=== PATIENT | female | born 1965 | race African-American/Black ===

== ENCOUNTER 2019-04-10 22:06 | Emergency (ER) | payer OTHER, SELFPAY ==
--- NOTE | 2019-04-10 22:44 | RAD ---
Exam: XR Foot Rt 3 View STANDARD HISTORY: Right toe swelling. COMPARISON: None FINDINGS: There are postsurgical changes involving the proximal right first metatarsal with evidence of postsur gical changes involving the distal right first metatarsal. There is a metallic staple overlying the proximal aspect of the proximal phalanx right great toe. There is a lucency seen involving the distal aspect of the proximal phalanx great toe, and the cortex along the distal margin is not visualized. While these findings could be postsurgical in origin, infectious process cannot be entire ly excluded. There is subcutaneous soft tissue swelling about the great toe. No acute fracture or dislocation is identified. No other osseous abnormality. IMPRESSION: 1. Lucency in the distal aspect proximal phalanx right great toe, and the cortex along the distal mar gin of the distal phalanx is not visualized. While findings could be related to postsurgical changes, osteomyelitis cannot be excluded. Correlation with prior radiographs of the right foot are r ecommended. 2. Postsurgical changes of the right first metatarsal and proximal phalanx. 3. Subcutaneous soft tissue swelling about the right great toe.
[2019-04-10] MEDS ORDERED: HYDROcodone/Acetaminophen 5/325 mg Tablet ONE (23:41)
[2019-04-10 23:58] LABS: #Basophils 0.1 thou/uL (0.0-0.2); #Eosinphils 0.3 thou/uL (0.0-0.7); #Lymphocytes 2.9 thou/uL (1.20-3.40); #Monocytes 0.8 thou/uL (0.11-0.59); #Neutrophils 5.7 thou/uL (1.40-6.50); %Basophils 1.4 % (0.0-1.0); %Eosinophils 3.6 % (0.0-10.0); %Lymphocytes 29.2 % (21.0-51.0); %Monocytes 7.8 % (0.0-10.0); %Neutrophils 58.1 % (42.0-75.0); Mean Corpuscular HGB CONC 34.4 g/dL (32.0-36.0); Mean Corpuscular Hemoglobin 30.7 pg (27.0-31.0); Mean Corpuscular Volume 89.2 fL (78.0-98.0); Mean Platelet Volume 6.6 fL (7.4-10.4); Platelet Count 340 thou/uL (130-400); RBC Distribution Width 12.1 % (11.5-14.5); Red Blood Cell (RBC) Count 4.57 mill/uL (4.20-5.40); White Blood Cell (WBC) Count 9.7 thou/uL (4.8-10.8)
[2019-04-11 00:21] LABS: ALT (SGPT) 21 U/L (8-55); AST (SGOT) 21 U/L (5-34); Alkaline Phosphatase 92 U/L (40-110); Anion Gap 13 mmol/L (10-20); BUN (Urea Nitrogen) 14 mg/dL (9.8-20.1); Bilirubin, Total 0.2 mg/dL (0.2-1.2); Calc. Creatinine Clearance 0 mL/min (70-130); Calcium 9.5 mg/dL (7.8-10.44); Carbon Dioxide 27 mmol/L (22-29); Chloride 107 mmol/L (98-107); Estimated GFR-MDRD Greater than 90; Globulin 3.6 g/dL (2.4-3.5); Glucose 102 mg/dL (70-105); Potassium 3.7 mmol/L (3.5-5.1); Protein, Total 7.6 g/dL (6.0-8.3); Sodium 143 mmol/L (136-145)
== END 2019-04-11 01:48 | disposition home or self-care (01) ==
LOC: ERS 22:06
DX: M79.674 Pain in right toe(s) (principal); I10 Essential (primary) hypertension; F17.290 Nicotine dependence, other tobacco product, uncomplicated; Z79.899 Other long term (current) drug therapy
CPT/HCPCS: 36415; 80053; 84550; 85025; 85652; 86140